=== PATIENT | male | born 1975 | race Caucasian/White ===

== ENCOUNTER 2020-09-04 20:06 | Emergency (ER) | payer OTHER, SELFPAY ==
[2020-09-04 20:07] VITALS: BP 135/88; PULSE 99; RESP 18; TEMP 37; O2SAT 97; BMI 29.0
--- NOTE | 2020-09-04 20:18 | ECG_ITS ---
APPROVED REPORT Exam: Resting ECG HR:106 bpm ECG Measurements Heart Rate 106 AXES OH 122 P 44 QRSd 86 QRS -4 QT 340 T 26 QTc 451 Conclusion Sinus tachycardia Otherwise normal ECG Electronically signed by : Eric Lim, 09/06/2020 21:39:43
--- NOTE | 2020-09-04 20:59 | CT_ITS ---
PROCEDURE INFORMATION: Exam: CT Head Without Contrast Exam date and time: 09/04/2020 8:59 PM Age: 45 years old Clinical indication: Dizziness; Patient HX: Dizzy blacked out this evening for few minutes; Additional info: Syncope, dizziness TECHNIQUE: Imaging protocol: Computed tomography of the head without contrast. Radiation optimization: All CT scans at this facility use at least one of these dose optimization techniques: automated exposure control; mA and/or kV adjustment per patient size (includes targeted exams where dose is matched to clinical indication); or iterative reconstruction. COMPARISON: No relevant prior studies available. FINDINGS: Brain: Normal. Cerebral ventricles: No ventriculomegaly. Paranasal sinuses: Visualized sinuses are unremarkable. No fluid levels. Mastoid air cells: Normal as visualized. Bones/joints: Normal. Soft tissues: Unremarkable. IMPRESSION: No acute intracranial abnormality.
--- NOTE | 2020-09-04 20:59 | XR_ITS ---
PROCEDURE INFORMATION: Exam: XR Chest Exam date and time: 09/04/2020 8:59 PM Age: 45 years old Clinical indication: Cough TECHNIQUE: Imaging protocol: XR of the chest. Views: 2 views. COMPARISON: No relevant prior studies available. FINDINGS: Lungs: Normal. Pleural spaces: Unremarkable. No pleural effusion. No pneumothorax. Heart/Mediastinum: Normal. Bones/joints: No acute abnormality. IMPRESSION: No acute findings.
[2020-09-04 21:00] VITALS: BP 142/92; PULSE 106; RESP 16; O2SAT 97
[2020-09-04 21:13] LABS: Basophils # 0.1 K/mm3 (0-0.2); Basophils % 1.3 % (0.1-2.0); Eosinophils % 0.5 % (0.1-12.0); Hematocrit 45.6 % (42.0-52.0); Lymphocytes % 12.8 % (10-50); Mean Corpuscular HGB Conc 32.8 g/dL (31.8-35.4); Mean Corpuscular Volume 91.6 fl (80-94); Monocytes # 0.7 K/mm3 (0.1-1.0); Monocytes % 8.4 % (1.7-9.3); Neutrophils # 6.2 K/mm3 (1.8-7.8); Platelet Count 265 K/mm3 (142-424); Red Blood Count 4.98 M/mm3 (4.60-6.20); Red Cell Distribution Width 14.7 % (11.5-17.5)
[2020-09-04 21:15] LABS: Alanine Aminotransferase 61 U/L (12-78); Albumin Level 4.3 g/dl (3.5-5.0); Albumin/Globulin Ratio 1.5 (1.1-1.8); Alkaline Phosphatase 81 U/L (38-126); Anion Gap 15.3 mEq/L (5-15); Aspartate Amino Transferase 68 U/L (17-59); Bilirubin,Total 0.5 mg/dl (0.2-1.3); Blood Urea Nitrogen 9 mg/dl (9-20); Calcium 8.5 mg/dl (8.4-10.2); Carbon Dioxide 28 mmol/L (22.0-30.0); Chloride 98 mmol/L (98-107); Creatinine Clearance Estimated 93 mL/min (50-200); Estimated Glomerular Filt Rate 66 ml/min (>60); GFR (African American) 80 ML/MIN (>60); Globulin 2.8 g/dL (1.3-3.2); Glucose 162 mg/dl (74-100); Potassium 3.3 mmoL/L (3.5-5.1); Sodium 138 mmol/L (136-145); Total Protein,Serum 7.1 g/dl (6.3-8.2)
[2020-09-04 21:21] LABS: C-Reactive Protein 12.1 mg/L (0-4)
[2020-09-04 21:35] LABS: Procalcitonin 0.081 ng/mL (0.0-2.0)
[2020-09-04 21:45] LABS: Troponin I < 0.01 ng/ml (0.00-0.034)
[2020-09-04 21:50] LABS: Erythrocyte Sedimentation Rate 3 mm/hr (0-15)
[2020-09-04 22:00] VITALS: BP 166/105; PULSE 110; RESP 15; O2SAT 97
[2020-09-04 22:30] VITALS: BP 140/88; PULSE 114; RESP 16; O2SAT 96
[2020-09-04 22:45] VITALS: BP 131/82; PULSE 103; RESP 18; O2SAT 96
--- NOTE | 2020-09-04 22:45 | [facility].EDSYNC ---
ED Disposition Clinical Impression: Near syncope Disposition: Admitted as Observation Condition on Discharge: Good Instructions: DI for Syncope in Adults (Fainting), DI for Syncope in Children (Fainting) Referrals: Provider,Referral, [Primary Care Provider] - - Critical Care Critical Care Time: No Attestation: On 09/04/20, the high probability of a clinically significant, sudden or life threatening deterioration of the following system(s) required my full and direct attention, intervention and personal management. The time I documented below is in addition to time spent performing reported procedures but includes the following listed in this critical care notation. Medical Decision Making - Medical Records Medical records reviewed: Yes: I reviewed the patient's medical records. - Alan Inquiry Pt receiving controlled substance: No Vital Signs: 09/04/20 20:07 Temperature 98.6 F Temperature Source Oral Pulse Rate [Left] 99 H Respiratory Rate 18 Blood Pressure [Left Arm] 135/88 Blood Pressure Mean [Left Arm] 103 Blood Pressure Source [Left Arm] Automatic Cuff 02 Sat by Pulse Oximetry 97 Oxygen Delivery Method Room Air - Lab Data Lab results reviewed: Yes: I reviewed the patient's lab results. Lab Results 09/04/20 20:30: WBC 8.0, RBC 4.98, Hgb 15.0, Hct 45.6, MCV 91.6, MCH 30.0, MCHC 32.8, RDW 14.7, Plt Count 265, MPV 9.0, Neut % (Auto) 77.0, Lymph % (Auto) 12.8, Bureau % (Auto) 8.4, Eos % (Auto) 0.5, Baso % (Auto) 1.3, Neut # (Auto) 6.2, Lymph # (Auto) 1.0, Bureau # (Auto) 0.7, Eos # (Auto) 0.0, Baso # (Auto) 0.1, ESR 3 09/04/20 20:30: Sodium 138, Potassium 3.3 L, Chloride 98, Carbon Dioxide 28, Anion Gap 15.3 H, BUN 9, Creatinine 1.20, Estimated Creat Clear 93, Estimated GFR 66, Est GFR ( Amer) 80, Glucose 162 H, Calcium 8.5, Total Bilirubin 0.5, AST 68 H, ALT 61, Alkaline Phosphatase 81, Troponin I < 0.01, C-Reactive Protein 12.1 H, Total Protein 7.1, Albumin 4.3, Globulin 2.8, Albumin/Globulin Ratio 1.5, Procalcitonin 0.081 Result diagrams: 09/04/20 20:30 09/04/20 20:30 Orders (Tests/Meds): ED MEDICATIONS Generic Name Dose Route Start Last Admin Trade Name Jett PRN Reason Stop Dose Admin Sodium Chloride 1,000 mls @ 999 mls/hr 09/04/20 21:15 09/04/20 21:20 Sod Chlor 0.9% 1000ml Bag IV 09/04/20 22:15 999 mls/hr .Q1H1M NORMA Administration ORDERS Category Date Time Status Rapid PCR Covid and Flu A/B Stat Lab 09/04/20 22:48 Ordered Troponin I Q3H Lab 09/05/20 00:15 Ordered Troponin I Q3H Lab 09/05/20 03:15 Ordered Urinalysis and Microscopic Stat Lab 09/04/20 21:02 Ordered - Radiology Data #1 Image(s): Chest Image Reviewed: Yes I reviewed the patient's radiology image Preliminary Findings: Normal/NAD - ECG Data Tracing #1 Normal Sinus Rhythm: Yes Ischemic changes: non-specific ST-T wave changes - Physician Consults Physician Consulted: obed Reason -: Admission - SANDRA Score for Non-Stemi Age of Patient: 40-49 years old Heart Rate: 90-109 bpm Systolic Blood Pressure: 120-139 mmhg Serum Creatinine: 1.20-1.59 mg/dl CHF Killip Class: I-No CHF Other Risk Factors: None Non-Stemi Risk Score: 84 Medical Decision Narrative: pt with episode of htn and chest pain on friday and near - syncopal episode tonight - uncertain as to etiology admitted for serial enz and card monitor Syncope HPI - General Chief Complaint: Syncope Stated Complaint: dizzy Time Seen by Provider: 09/04/20 22:00 Mode of Arrival: Family Vehicle Source of Information: Patient, Medical Record Limitations: No Limitations Description of Symptoms (Recalled from ER Triage Doc. by RN): Pt c/o dizziness and blacking out this evening during dinner. Pt reports he had an episode of chest pain on Friday (09/01) and was seen at [facility]. Pt reports he was there for 3 hrs and never saw a doctor so I left . Pt denies any current chest pain, SOA, or N/V/D. He does report chills, occas
--- NOTE | 2020-09-04 22:47 | PC.NURSE ---
speaking with Dr. Huertas
--- NOTE | 2020-09-04 23:00 | PC.NURSE ---
Covid swab sent up. Notified registration of admission
[2020-09-04 23:09] LABS: Influenza A, PCR Not Detected (NotDetected); Influenza B, PCR Not Detected (NotDetected)
[2020-09-04 23:43] LABS: Coronavirus 19, PCR Detected (NotDetected)
--- NOTE | 2020-09-04 23:44 | PC.NURSE ---
KurtRN was at the bedside discussing pt leaving AMA and having him sign the form when I arrived at bedside pt advised I have shit to do and I'm not waiting any longer I explained to him that I had sent his covid swab up earlier and it wouldn't be too much longer until it was resulted and I would take him up to his room. He stated no I don't have time for that and you don't have to be like that. Advised pt he would need to sign the AMA paper if he was going to leave. Pt signed AMA form and left.
[2020-09-04 23:59] VITALS: BP 131/82; PULSE 103; RESP 18; TEMP 37; O2SAT 96
== END 2020-09-05 00:03 | disposition admitted as inpatient to this hospital (09) ==
LOC: ER 22:55 → 2ND 23:06
PROVIDERS: Emergency Provider Emergency Medicine
DX: R55 Syncope and collapse (principal); U07.1 COVID-19; I10 Essential (primary) hypertension
CPT/HCPCS: 70450; 71046; 80053; 84145; 84484; 85025; 85651; 86140; 93005; 96365; 99282; 99283; U0003